=== PATIENT | female | born 1995 ===

== ENCOUNTER 2018-03-22 19:44 | Emergency (ER) | payer SELFPAY ==
[2018-03-22 20:14] VITALS: O2SAT 100
[2018-03-22] MEDS ORDERED: Sodium Chloride 0.9% 1,000 ML IV STA (20:43)
[2018-03-22 21:28] LABS: BASO # 0.1 K/uL (0.0-0.2); BASO % 0.5 % (0.0-2.0); EOS # 0.1 K/uL (0.0-0.7); EOS % 0.9 % (0.0-4.0); HEMOGLOBIN 14.1 g/dL (12.0-16.0); MEAN CELL VOLUME 93.3 fl (81.0-99.0); MEAN CORPUSCULAR HEMOGLOBIN 30.7 pg (27.0-31.0); MEAN CORPUSCULAR HGB CONC 32.9 g/dL (33.0-37.0); MEAN PLATELET VOLUME 7.8 fl (7.2-11.7); MONO # 1.2 K/uL (0.0-0.8); MONO % 8.8 % (0.0-10.0); NEUT # 9.9 K/uL (1.8-7.0); NEUT % 74.8 % (50.0-75.0); RBC 4.58 Mil/uL (3.80-5.20); WHITE BLOOD COUNT 13.2 K/uL (4.8-10.8)
[2018-03-22 21:41] LABS: BLOOD UREA NITROGEN 10 mg/dl (7-17); CALCIUM 9.4 mg/dL (8.4-10.2); GFR NON-AFRICAN AMERICAN > 60
--- NOTE | 2018-03-22 22:15 | ED PDOC ---
HPI: Abdomen Time Seen by Provider: 03/22/18 20:24 Chief Complaint (Nursing): Abdominal Pain Chief Complaint (Provider): Right flank pain History Per: Patient History/Exam Limitations: no limitations Onset/Duration Of Symptoms: Days Outside of [place] travel?: No Current Symptoms Are (Timing): Still Present Associated Symptoms: Urinary Symptoms Additional History Per: Patient Additional Complaint(s): 22yo female, history of UTI and renal stones, comes to ER reporting right flank pain since this morning. Patient states she has been suffering from dysuria and frequency for the past couple weeks and thinks it is a UTI. She reports watery diarrhea this morning but otherwise denies any vomiting. She has no other complaints. PMD: Kerrick Abnormal Vaginal Bleeding: No Past Medical History Reviewed: Historical Data, Nursing Documentation, Vital Signs Vital Signs: Last Vital Signs Temp 98.4 F 03/22/18 20:01 Pulse 82 03/22/18 20:01 Resp 16 03/22/18 20:01 BP 106/61 03/22/18 20:01 Pulse Ox 100 03/22/18 20:01 - Medical History PMH: Kidney Stones - Surgical History Surgical History: No Surg Hx - Family History Family History: States: No Known Family Hx - Social History Current smoker - smoking cessation education provided: No Alcohol: None Drugs: Denies - Home Medications Home Medications: Ambulatory Orders Medication Instructions Recorded Sulfamethoxazole/Trimethoprim 1 tab PO BID #20 tab 03/22/18 [Bactrim DS 800 mg-160 mg] - Allergies Allergies/Adverse Reactions: Allergies Allergy/AdvReac Type Severity Reaction Status Date / Time No Known Allergies Allergy Verified 03/22/18 20:14 Review of Systems ROS Statement: Except As Marked, All Systems Reviewed And Found Negative Gastrointestinal: Positive for: Other (right flank pain) Genitourinary Female: Positive for: Dysuria, Frequency Musculoskeletal: Positive for: Back Pain Physical Exam - Reviewed Nursing Documentation Reviewed: Yes Vital Signs Reviewed: Yes - Physical Exam Appears: Positive for: Non-toxic, No Acute Distress Head Exam: Positive for: ATRAUMATIC, NORMAL INSPECTION, NORMOCEPHALIC Skin: Positive for: Normal Color Eye Exam: Positive for: Normal appearance Neck: Positive for: Normal, Supple Cardiovascular/Chest: Positive for: Regular Rate, Rhythm Respiratory: Positive for: Normal Breath Sounds Gastrointestinal/Abdominal: Positive for: Soft, Tenderness (right flank tenderness; suprapubic tenderness). Negative for: Guarding, Rebound Back: Positive for: R CVA Tenderness Extremity: Positive for: Normal ROM. Negative for: Pedal Edema Neurologic/Psych: Positive for: Alert, Oriented. Negative for: Motor/Sensory Deficits - Laboratory Results Result Diagrams: 03/22/18 21:15 03/22/18 21:15 Urine POC: Negative Urine dip results: Positive for: Leukocyte Esterase (large), Blood (large), Nitrate - ECG O2 Sat by Pulse Oximetry: 100 (RA) Pulse Ox Interpretation: Normal - Progress Re-evaluation Time: 23:35 Condition: Re-examined, Improved Medical Decision Making Medical Decision Making: Impression: UTI Differential: Kidney stone, pyelonephritis, less likely sepsis Plan: -- UDip -- Labs -- IV fluids -- Toradol 15mg IV -- CT Abd/Pelvis w/o contrast 22:30 CT Abd/Pelvis FINDINGS: LUNG BASES: The lung bases appear clear. No pleural effusions are seen. LIVER: Unremarkable. GALLBLADDER AND BILE DUCTS: The gallbladder appears within normal limits. No radioopaque gallstones are seen. No biliary ductal dilatation is evident. PANCREAS: Unremarkable. SPLEEN: Unremarkable. ADRENAL GLANDS: Unremarkable. KIDNEYS, URETERS, AND BLADDER: The kidneys appear within normal limits. There is no hydronephrosis or hydroureter. No urinary calculi are seen. STOMACH AND BOWEL: Unremarkable appearance of the stomach and bowel. No evidence of bowel obstruction. No evidence suggesting enteritis or colitis. APPENDIX: No evidence of acute appendicitis on CT examination. PERITONEUM: No free fluid. No free air. LYMPH NODES: No lymphadenopathy is evident. REPRODUCTIVE: Unremarkable as visualized. VASCULATURE: No evidence of abdominal aortic aneurysm. BONES: No aggressive appearing osseous lesion. No acute osseous pathology evident. IMPRESSION: No acute intra-abdominal or pelvic abnormality. No urinary calculi are seen. Normal appendix. Scribe Attestation: Documented by Andreina Neal, acting as a scribe for Moses Miranda MD. Provider Scribe Attestation: All medical record entries made by the Scribe were at my direction and personally dictated by me. I have reviewed the chart and agree that the record accurately reflects my personal performance of the history, physical exam, medical decision making, and the department course for this patient. I have also personally directed, reviewed, and agree with the discharge instructions and disposition. Disposition - Clinical Impression Clinical Impression: UTI (urinary tract infection), Flank pain - Patient ED Disposition Is Patient to be Admitted: No Doctor Will See Patient In The: Office Counseled Patient/Family Regarding: Studies Performed, Diagnosis, Need For Followup - Disposition Referrals: [facility] [Outside] Disposition: Routine/Home Disposition Time: 23:35 Condition: GOOD Additional Instructions: COOPER BELTRÁN, thank you for letting us take care of you today. Your provider was Moses Miranda MD and you were treated for RT SIDE PAIN. The e [facility] medical care you received today was directed at your acute symptoms. If you were prescribed any medication, please fill it and take as directed. It may take several days for your symptoms to resolve. Return to the Emergency Department if your symptoms worsen, do not improve, or if you have any other problems. Please contact your doctor or call one of the physicians/clinics you have been referred to that are listed on the Patient Visit Information form that is included in your discharge packet. Bring any paperwork you were given at discharge with you along with any medications you are taking to your follow up visit. Our treatment cannot replace ongoing medical care by a primary care provider outside of the emergency department. Thank you for allowing the [facility] team to be part of your care today. If you had an X-Ray or CT scan: A Radiologist will review the ED reading if any change in treatment is needed we will contact you. If you had a blood, urine, or wound culture: It will take several days for the results, if any change in treatment is needed we will contact you. If you had an STI test: It will take 48 hours for the results. Please call after 1 week if you have not heard back. Prescriptions: Sulfamethoxazole/Trimethoprim [Bactrim DS 800 mg-160 mg] 1 tab PO BID #20 tab Instructions: Urinary Tract Infection, Adult (DC)
[2018-03-22] MEDS ORDERED: cefTRIAXone (Rocephin) 1 gm Inj ONE (22:35)
[2018-03-22 23:47] VITALS: BP 114/51; PULSE 72; RESP 18; TEMP 98.2
--- NOTE | 2018-03-23 10:47 | CT ---
Date of service: 03/22/2018 PROCEDURE: CT Abdomen and Pelvis without intravenous contrast HISTORY: right flank pain COMPARISON: None. TECHNIQUE: Unenhanced. Neither IV nor oral contrast administered Radiation dose: Total exam DLP = 236.46 mGy-cm. This CT exam was performed using one or more of the following dose reduction techniques: Automated exposure control, adjustment of the mA and/or kV according to patient size, and/or use of iterative reconstruction technique. FINDINGS: LOWER THORAX: Unremarkable. LIVER: Unremarkable. No gross lesion or ductal dilatation. GALLBLADDER AND BILE DUCTS: Unremarkable. PANCREAS: Unremarkable. No gross lesion or ductal dilatation. SPLEEN: Unremarkable. ADRENALS: Unremarkable. No mass. KIDNEYS AND URETERS: Unremarkable. No hydronephrosis. No solid mass. VASCULATURE: Unremarkable. No aortic aneurysm. No atherosclerotic calcification or mural plaque present. BOWEL: Unremarkable. No obstruction. No gross mural thickening. APPENDIX: No abnormalities to suggest acute appendicitis. No right lower quadrant inflammatory processes identified. Incidental finding(s): Small appendicular less. PERITONEUM: Trace free fluid identified in the pelvis/cul de sac. No free air. LYMPH NODES: Unremarkable. No enlarged lymph nodes. BLADDER: Unremarkable. REPRODUCTIVE: Unremarkable. BONES: No acute fracture. Scoliosis, without secondary degenerative change. OTHER FINDINGS: None. IMPRESSION: No significant or acute findings to account for/ related to the clinical presentation. Additional benign and/or incidental findings described above. Concordant results (preliminary interpretation) provided by [employer]. Procedure Completed: 21:55. Preliminary Report: Dictated and Authenticated: 22:13. Final Interpretation: 10:43. March 23, 2018
== END 2018-03-22 23:54 | disposition home or self-care (01) ==
LOC: H.ER 19:44
DX: N39.0 Urinary tract infection, site not specified (principal)
CPT/HCPCS: 74176; 80048; 81025; 85025; 87040; 87086; 96361; 96365; 96375; 99284; J0696; J1885; J7030

== ENCOUNTER 2018-06-11 13:35 | Emergency (ER) | payer MEDICAID ==
[2018-06-11 13:47] VITALS: BMI 21.7
[2018-06-11 13:48] VITALS: TEMP 98.2
[2018-06-11 14:39] LABS: BASO # 0.1 K/uL (0.0-0.2); BASO % 1.1 % (0.0-2.0); EOS # 0.1 K/uL (0.0-0.7); EOS % 1.6 % (0.0-4.0); LYMPH # 1.6 K/uL (1.0-4.3); LYMPH % 20.5 % (20.0-40.0); MEAN CORPUSCULAR HEMOGLOBIN 31.3 pg (27.0-31.0); MEAN PLATELET VOLUME 8.1 fl (7.2-11.7); MONO # 0.6 K/uL (0.0-0.8); MONO % 8.2 % (0.0-10.0); NEUT # 5.2 K/uL (1.8-7.0); NEUT % 68.6 % (50.0-75.0); RBC 4.16 Mil/uL (3.80-5.20); RED CELL DISTRIBUTION WIDTH 13.1 % (11.5-14.5); WHITE BLOOD COUNT 7.6 K/uL (4.8-10.8)
[2018-06-11 14:45] LABS: ALB/GLOB RATIO 1.5 (1.0-2.1); ALBUMIN 4.6 g/dL (3.5-5.0); ALT/SGPT 31 U/L (9-52); AST/SGOT 21 U/L (14-36); BLOOD UREA NITROGEN 8 mg/dl (7-17); CALCIUM 9.3 mg/dL (8.4-10.2); GFR NON-AFRICAN AMERICAN > 60
--- NOTE | 2018-06-11 16:15 | US ---
Date of service: 2018-06-11 14:44:36 HISTORY: routine COMPARISON: None available. TECHNIQUE: Transvaginal pelvic ultrasound was performed. FINDINGS: UTERUS: Measures 9.5 x 5.1 x 4.2 cm. Normal in size and appearance. No fibroid or other mass lesion seen. ENDOMETRIUM: Measures 14 mm in diameter. The central endometrial echo complex is heterogeneous without increased vascularity. No evidence of intrauterine gestational sac. CERVIX: No cervical abnormality identified. RIGHT OVARY: Measures 2.6 x 1.5 x 1.1 cm. No solid mass. Normal flow. LEFT OVARY: Measures 3.5 x 2.3 x 1.6 cm. No solid mass. Normal flow. FREE FLUID: No significant free fluid noted. OTHER FINDINGS: None. IMPRESSION: No evidence of intrauterine gestational sac. Heterogeneous central endometrial echo complex without central increased vascularity.
--- NOTE | 2018-06-11 16:19 | ED PDOC ---
HPI: Female Pain Time Seen by Provider: 06/11/18 14:17 Chief Complaint (Nursing): Female Genitourinary Chief Complaint (Provider): VAGINAL BLEEDING History Per: Patient (23 Y/O HERE WITH LOWER ABDOMINAL PAIN/BACK PAIN WITH VAGINAL BLEEDING TODAY. NO FEVERS/CHILLS. PATIENT IS PENDING US.) Past Medical History Reviewed: Historical Data, Nursing Documentation, Vital Signs Vital Signs: Last Vital Signs Temp 98.2 F 06/11/18 13:47 Pulse 93 H 06/11/18 13:47 Resp 18 06/11/18 13:47 BP 105/56 L 06/11/18 13:47 Pulse Ox 98 06/11/18 13:47 - Medical History PMH: Kidney Stones - Family History Family History: States: No Known Family Hx - Immunization History Hx Tetanus Toxoid Vaccination: No Hx Influenza Vaccination: No Hx Pneumococcal Vaccination: No - Home Medications Home Medications: Ambulatory Orders Medication Instructions Recorded Naproxen [Naprosyn] 500 mg PO BID PRN #15 tablet 06/13/18 Ondansetron ODT [Zofran ODT] 4 mg PO Q8H PRN #20 odt 06/13/18 - Allergies Allergies/Adverse Reactions: Allergies Allergy/AdvReac Type Severity Reaction Status Date / Time No Known Allergies Allergy Verified 06/13/18 13:47 Review of Systems ROS Statement: Except As Marked, All Systems Reviewed And Found Negative Gastrointestinal: Positive for: Abdominal Pain Genitourinary Female: Positive for: Vaginal Bleeding Physical Exam - Reviewed Nursing Documentation Reviewed: Yes Vital Signs Reviewed: Yes - Physical Exam Appears: Positive for: Well, Non-toxic, No Acute Distress Head Exam: Positive for: ATRAUMATIC, NORMAL INSPECTION, NORMOCEPHALIC Skin: Positive for: Normal Color, Warm, DRY Eye Exam: Positive for: EOMI, Normal appearance, PERRL ENT: Positive for: Normal ENT Inspection Neck: Positive for: Normal, Painless ROM Cardiovascular/Chest: Positive for: Regular Rate, Rhythm Respiratory: Positive for: CNT, Normal Breath Sounds Gastrointestinal/Abdominal: Positive for: Normal Exam, Soft Back: Positive for: Normal Inspection Extremity: Positive for: Normal ROM Neurologic/Psych: Positive for: Alert, Oriented - Laboratory Results Result Diagrams: 06/11/18 14:31 06/11/18 14:31 Lab Results: Total Bilirubin 0.3 mg/dl (0.2-1.3) 06/11/18 14:31 AST 21 U/L (14-36) 06/11/18 14:31 ALT 31 U/L (9-52) 06/11/18 14:31 Alkaline Phosphatase 41 U/L (38-126) 06/11/18 14:31 Total Protein 7.6 G/DL (6.3-8.2) 06/11/18 14:31 Albumin 4.6 g/dL (3.5-5.0) 06/11/18 14:31 Globulin 3.0 gm/dL (2.2-3.9) 06/11/18 14:31 Albumin/Globulin Ratio 1.5 (1.0-2.1) 06/11/18 14:31 Beta HCG, Quant 6638.00 mIU/mL 06/11/18 14:31 - ECG O2 Sat by Pulse Oximetry: 98 - Progress ED Course And Treament: IMPRESSION: No evidence of intrauterine gestational sac. Heterogeneous central endometrial echo complex without central increased vascularity. D/W DR. ALVARADO. RETURN TO ED IN 2 DAYS FOR REPEAT BETA HCG Disposition - Clinical Impression Clinical Impression: Threatened miscarriage in early - Patient ED Disposition Is Patient to be Admitted: No - Disposition Disposition: Routine/Home Disposition Time: 17:06 Condition: FAIR Additional Instructions: RETURN IN 2 DAYS FOR REPEAT BETA HCG Instructions: Threatened Miscarriage (DC) Forms: [facility] ED School/Work Excuse
[2018-06-11] MEDS ORDERED: Sodium Chloride 0.9% 1,000 ML IV STA (16:42)
[2018-06-11] MEDS ORDERED: Morphine 4 MG/ML VIAL IVP ONE (16:42)
[2018-06-11 18:03] VITALS: BP 109/64; PULSE 83; RESP 16
[2018-06-14 17:43] VITALS: O2SAT 98
== END 2018-06-11 18:01 | disposition home or self-care (01) ==
LOC: H.ER 13:35
DX: O20.0 Threatened abortion (principal); Z87.442 Personal history of urinary calculi
CPT/HCPCS: 76817; 80053; 84702; 85025; 86850; 86900; 96360; 96361; 99284; J7030

== ENCOUNTER 2018-06-13 13:15 | Emergency (ER) | payer MEDICAID ==
[2018-06-13 13:16] VITALS: BMI 21.7
[2018-06-13 13:52] VITALS: O2SAT 100
--- NOTE | 2018-06-13 15:09 | ED PDOC ---
HPI: Female Pain Time Seen by Provider: 06/13/18 14:28 Chief Complaint (Nursing): Abdominal Pain Chief Complaint (Provider): Abdominal Pain History Per: Patient History/Exam Limitations: no limitations Onset/Duration Of Symptoms: Days Additional Complaint(s): Kera Rich is a 23 year old female with a past medical history of , who presents to the emergency department for a follow up Beta-HCG quantitative test. Patient is at 5-6 weeks and was present at this ED x2 days ago for vaginal bleeding. During visit, the US was not able to detect the patient's heartbeat so the presumption was a miscarriage. Patient was told to come back in today for a repeat Beta-HCG level. 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 Currently her pain is at a 4/10. She has no other complaints. PMD: [facility] : 2 Para: 1 Past Medical History Reviewed: Historical Data, Nursing Documentation, Vital Signs Vital Signs: Last Vital Signs Temp 98.5 F 06/13/18 13:48 Pulse 70 06/13/18 13:48 Resp 16 06/13/18 13:48 BP 105/62 06/13/18 13:48 Pulse Ox 100 06/13/18 13:48 - Medical History PMH: Kidney Stones - Surgical History Surgical History: No Surg Hx - Family History Family History: States: Unknown Family Hx - Immunization History Hx Tetanus Toxoid Vaccination: No Hx Influenza Vaccination: No Hx Pneumococcal Vaccination: No - Home Medications Home Medications: Ambulatory Orders Medication Instructions Recorded No Known Home Med 04/24/18 - Allergies Allergies/Adverse Reactions: Allergies Allergy/AdvReac Type Severity Reaction Status Date / Time No Known Allergies Allergy Verified 06/13/18 13:47 Review of Systems ROS Statement: Except As Marked, All Systems Reviewed And Found Negative Gastrointestinal: Positive for: Abdominal Pain Physical Exam - Reviewed Nursing Documentation Reviewed: Yes Vital Signs Reviewed: Yes - Physical Exam Appears: Positive for: Non-toxic, No Acute Distress Head Exam: Positive for: ATRAUMATIC, NORMOCEPHALIC Skin: Positive for: Normal Color, Warm, Dry Eye Exam: Positive for: Normal appearance, EOMI, PERRL ENT: Positive for: Normal ENT Inspection Neck: Positive for: Normal, Painless ROM, Supple Cardiovascular/Chest: Positive for: Regular Rate, Rhythm. Negative for: Murmur Respiratory: Positive for: Normal Breath Sounds. Negative for: Respiratory Distress Gastrointestinal/Abdominal: Positive for: Tenderness (mild lower abdominal tenderness) Extremity: Positive for: Normal ROM. Negative for: Pedal Edema, Deformity Neurologic/Psych: Positive for: Alert, Oriented - ECG O2 Sat by Pulse Oximetry: 100 (RA) Pulse Ox Interpretation: Normal Medical Decision Making Medical Decision Making: Time: 1441 Impression: miscarriage Plan: --Beta-HCG quantitative Scribe Attestation: Documented by Solomon Kelley, acting as a scribe for Ladonna Plaza MD. Provider Scribe Attestation: All medical record entries made by the Scribe were at my direction and personally dictated by me. I have reviewed the chart and agree that the record accurately reflects my personal performance of the history, physical exam, medical decision making, and the department course for this patient. I have also personally directed, reviewed, and agree with the discharge instructions and disposition. Disposition - Clinical Impression Clinical Impression: Miscarriage - Patient ED Disposition Is Patient to be Admitted: No Doctor Will See Patient In The: Office Counseled Patient/Family Regarding: Diagnosis, Need For Followup - Disposition Disposition: Routine/Home Disposition Time: 15:30 Condition: STABLE Additional Instructions: See your doctor or return to the ER if there is worsening pain, fever, foul smelling discharge or severe bleeding. Instructions: Dealing With Miscarriage, Miscarriage Forms: [employer] (Vietnamese), [employer] ED School/Work Excuse - POA Present On Arrival: None
[2018-06-13 15:54] VITALS: BP 112/66; PULSE 62; RESP 17; TEMP 98.1
[2018-06-13] MEDS ORDERED: Potassium Chloride 20 mEq ER Tab PO ONE (23:38)
== END 2018-06-13 15:44 | disposition home or self-care (01) ==
LOC: H.ER 13:15
DX: O03.9 Complete or unspecified spontaneous abortion without complication (principal); Z3A.01 Less than 8 weeks gestation of pregnancy

== ENCOUNTER 2018-06-13 21:34 | Emergency (ER) | payer MEDICAID ==
[2018-06-13 21:35] VITALS: BMI 21.7
[2018-06-13 21:46] VITALS: BP 105/57; PULSE 72; RESP 16; TEMP 98.1; O2SAT 99
[2018-06-13] MEDS ORDERED: Sodium Chloride 0.9% 1,000 ML IV STA (22:09)
--- NOTE | 2018-06-13 22:19 | ED PDOC ---
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 Reports continued abdominal cramping, took Tylenol at home. Denies fever, vomiting, diarrhea. Past Medical History Reviewed: Nursing Documentation, Vital Signs Vital Signs: Last Vital Signs Temp 98.1 F 06/13/18 21:43 Pulse 72 06/13/18 21:43 Resp 16 06/13/18 21:43 BP 105/57 L 06/13/18 21:43 Pulse Ox 99 06/13/18 21:43 - Medical History PMH: No Chronic Diseases, Kidney Stones - Family History Family History: States: Unknown Family Hx - Social History Current smoker - smoking cessation education provided: No - Immunization History Hx Tetanus Toxoid Vaccination: No Hx Influenza Vaccination: No Hx Pneumococcal Vaccination: No - Home Medications Home Medications: Ambulatory Orders Medication Instructions Recorded Naproxen [Naprosyn] 500 mg PO BID PRN #15 tablet 06/13/18 Ondansetron ODT [Zofran ODT] 4 mg PO Q8H PRN #20 odt 06/13/18 - Allergies Allergies/Adverse Reactions: Allergies Allergy/AdvReac Type Severity Reaction Status Date / Time No Known Allergies Allergy Verified 06/13/18 13:47 Review of Systems Constitutional: Positive for: Chills. Negative for: Fever Cardiovascular: Negative for: Chest Pain Respiratory: Negative for: Shortness of Breath Gastrointestinal: Positive for: Nausea, Abdominal Pain. Negative for: Vomiting, Diarrhea Genitourinary Female: Positive for: Vaginal Bleeding. Negative for: Dysuria Physical Exam - Reviewed Nursing Documentation Reviewed: Yes Vital Signs Reviewed: Yes - Physical Exam Appears: Positive for: Well, No Acute Distress Head Exam: Positive for: ATRAUMATIC, NORMAL INSPECTION Skin: Positive for: Normal Color, Warm, Dry Eye Exam: Positive for: Normal appearance, EOMI, PERRL Cardiovascular/Chest: Positive for: Regular Rate, Rhythm Respiratory: Positive for: Normal Breath Sounds Gastrointestinal/Abdominal: Positive for: Bowel Sounds, Soft, Tenderness (Suprapubic). Negative for: Distended, Guarding, Rebound Back: Positive for: Normal Inspection. Negative for: L CVA Tenderness, R CVA Tenderness Extremity: Positive for: Normal ROM Neurologic/Psych: Positive for: Alert, Oriented - Laboratory Results Result Diagrams: 06/13/18 22:16 06/13/18 22:16 - ECG O2 Sat by Pulse Oximetry: 99 - Progress Condition: Improved Medical Decision Making Medical Decision Makin yo female with nausea and abdominal pain. - labs - IVF - Zofran Disposition - Clinical Impression Clinical Impression: Nausea in adult, Spontaneous - Disposition Referrals: [facility] [place] [Outside] Disposition: Routine/Home Disposition Time: 23:53 Condition: IMPROVED Prescriptions: Naproxen [Naprosyn] 500 mg PO BID PRN #15 tablet PRN Reason: Pain, Moderate (4-7) Ondansetron ODT [Zofran ODT] 4 mg PO Q8H PRN #20 odt PRN Reason: Nausea/Vomiting Instructions: Miscarriage, Nausea and Vomiting, Adult Forms: [facility] (Thai)
[2018-06-13 22:39] LABS: BASO # 0.2 K/uL (0.0-0.2); BASO % 2.6 % (0.0-2.0); EOS # 0.1 K/uL (0.0-0.7); EOS % 1.9 % (0.0-4.0); HEMOGLOBIN 12.7 g/dL (12.0-16.0); LYMPH # 2.1 K/uL (1.0-4.3); LYMPH % 27.2 % (20.0-40.0); MEAN CELL VOLUME 93.5 fl (81.0-99.0); MEAN CORPUSCULAR HEMOGLOBIN 30.3 pg (27.0-31.0); MEAN CORPUSCULAR HGB CONC 32.4 g/dL (33.0-37.0); MEAN PLATELET VOLUME 8.4 fl (7.2-11.7); MONO # 0.6 K/uL (0.0-0.8); MONO % 7.6 % (0.0-10.0); NEUT # 4.7 K/uL (1.8-7.0); NEUT % 60.7 % (50.0-75.0); RBC 4.2 Mil/uL (3.80-5.20); RED CELL DISTRIBUTION WIDTH 12.9 % (11.5-14.5); WHITE BLOOD COUNT 7.7 K/uL (4.8-10.8)
[2018-06-13 23:03] LABS: ALB/GLOB RATIO 1.5 (1.0-2.1); ALBUMIN 4.2 g/dL (3.5-5.0); ALT/SGPT 16 U/L (9-52); AST/SGOT 21 U/L (14-36); BLOOD UREA NITROGEN 10 mg/dl (7-17); CALCIUM 8.9 mg/dL (8.4-10.2); GFR NON-AFRICAN AMERICAN > 60
[2018-06-13] MEDS ORDERED: Potassium Chloride 20 mEq ER Tab PO STA (23:07)
== END 2018-06-14 00:10 | disposition home or self-care (01) ==
LOC: H.ER 21:34
DX: O03.9 Complete or unspecified spontaneous abortion without complication (principal); R11.0 Nausea
CPT/HCPCS: 80053; 84702; 85025; 96374; 99283; J2405; J7030

== ENCOUNTER 2018-07-31 16:47 | Emergency (ER) | payer MEDICAID ==
[2018-07-31 16:55] VITALS: PULSE 74; RESP 16; TEMP 97.7; O2SAT 100; BMI 21.3
[2018-07-31 17:00] VITALS: BP 120/45
[2018-07-31] MEDS ORDERED: Naproxen 500 MG TAB PO STA (17:58)
--- NOTE | 2018-07-31 19:59 | ED PDOC ---
Lower Extremity Pain/Injury Time Seen by Provider: 07/31/18 17:45 Chief Complaint (Nursing): Lower Extremity Problem/Injury Chief Complaint (Provider): Right Knee Pain History Per: Patient History/Exam Limitations: no limitations Onset/Duration Of Symptoms: Mins (just prior to arrival) Current Symptoms Are (Timing): Still Present Additional Complaint(s): 23 year old female with no significant pmhx presents to the ED for evaluation of right knee pain s/p a slip and fall in the snow just prior to arrival. Patient reports that she is able to bear weight on the leg, but feels a shooting pain radiating from her mid calf to her knee. No meds taken. She further states that she has been having left posterior ankle pain since December 2017 when she was diagnosed with Achilles tendonitis. Minimal improvement is provided by NSAIDs (unsure which one), last dose two days ago, but she notes pain persists. Denies numbness / tingling in bilateral feet, fever, chills, and heel pain. PMD: Artemio Morton Past Medical History Vital Signs: Last Vital Signs Temp 97.7 F 07/31/18 16:54 Pulse 74 07/31/18 16:54 Resp 16 07/31/18 16:54 BP 120/45 L 07/31/18 16:59 Pulse Ox 100 07/31/18 16:54 - Medical History PMH: Kidney Stones - Family History Family History: States: Unknown Family Hx - Immunization History Hx Tetanus Toxoid Vaccination: No Hx Influenza Vaccination: No Hx Pneumococcal Vaccination: No - Home Medications Home Medications: Ambulatory Orders Medication Instructions Recorded Naproxen [Naprosyn] 500 mg PO BID PRN #15 tablet 06/13/18 Ondansetron ODT [Zofran ODT] 4 mg PO Q8H PRN #20 odt 06/13/18 - Allergies Allergies/Adverse Reactions: Allergies Allergy/AdvReac Type Severity Reaction Status Date / Time No Known Allergies Allergy Verified 07/31/18 16:51 Review of Systems ROS Statement: Except As Marked, All Systems Reviewed And Found Negative Constitutional: Negative for: Fever, Chills Musculoskeletal: Positive for: Other (shooting pain going from mid calf to knee of right leg; left posterior ankle pain; no ) Neurological: Negative for: Numbness (or tingling in feet) Physical Exam - Reviewed Nursing Documentation Reviewed: Yes Vital Signs Reviewed: Yes - Physical Exam Appears: Positive for: Well Pulses-Dorsalis Pedis (L): 2+ Pulses-Dorsalis Pedis (R): 2+ Extremity: Positive for: Normal ROM (normal extension of right knee, mild pain with flexion; normal flexion and extension of right ankle and hip; normal flexion and extension of left ankle), Tenderness (right knee mildly tender superior to patella without ecchymosis, erythema, and deformity; mild tenderness to palpation of left Achilles tendon; no tenderness to paplation of left calcaneus), Capillary Refill (less than 2 seconds). Negative for: Other (erythema, swelling, or ecchymosis to left posterior ankle) Neurologic/Psych: Positive for: Alert, Oriented (x3) - ECG O2 Sat by Pulse Oximetry: 100 (RA) Pulse Ox Interpretation: Normal Medical Decision Making Medical Decision Making: Time: 1756 Initial Impression: right knee pain Initial Plan: --Right knee XR --U-preg --Naproxen 500mg PO 2004 Right knee XR reviewed by me: no fracture or dislocation appreciated Patient notes moderate improvement of pain and is stable for discharge home. Scribe Attestation: Documented by Amanda Palmer, acting as a scribe for Hailey Plaza PA-C. Provider Scribe Attestation: All medical record entries made by the Scribe were at my direction and personally dictated by me. I have reviewed the chart and agree that the record accurately reflects my personal performance of the history, physical exam, medical decision making, and the department course for this patient. I have also personally directed, reviewed, and agree with the discharge instructions and disposition. Disposition - Clinical Impression Clinical Impression: Knee pain, right, Achilles tendinitis, left leg - Patient ED Disposition Is Patient to be Admitted: No Counseled Patient/Family Regarding: Studies Performed, Need For Followup, Rx Given - Disposition Referrals: Torres Barnhart MD [Staff Provider] - Artemio Vincent MD [Family Provider] - Disposition: Routine/Home Disposition Time: 20:05 Condition: STABLE Additional Instructions: Take Naproxen for pain as needed. Follow up with environmental web crawler for further advise re: Achilles tendinitis. Do stretching exercises for Left Achilles tendon. Instructions: Contusion (DC), Knee Pain (DC), Achilles Tendinitis (ED) Forms: [employer] (Faroese) Print Language: TANZANIAN
--- NOTE | 2018-08-01 08:36 | RAD ---
Date of service: 07/31/2018 PROCEDURE: Right Knee Radiographs. HISTORY: s/p fall onto Right knee COMPARISON: None. FINDINGS: BONES: Normal. No fracture. JOINTS: Normal. No osteoarthritis. JOINT EFFUSION: No significant appearing joint effusion. OTHER FINDINGS: None. IMPRESSION: No fracture lytic lesion. No significant appearing joint effusion. Comments: No preliminary ER impression at this time.
== END 2018-07-31 20:39 | disposition home or self-care (01) ==
LOC: H.ER 16:47
DX: M25.561 Pain in right knee (principal); M76.62 Achilles tendinitis, left leg; Z87.442 Personal history of urinary calculi

== ENCOUNTER 2018-08-14 09:02 | Emergency (ER) | payer MEDICAID ==
[2018-08-14 09:04] VITALS: BMI 21.3
--- NOTE | 2018-08-14 09:44 | ED PDOC ---
HPI: Chest Pain Time Seen by Provider: 08/14/18 09:22 Chief Complaint (Nursing): Chest Pain Chief Complaint (Provider): Chest Pain History Per: Patient History/Exam Limitations: no limitations Onset/Duration Of Symptoms: Days (today morning) Current Symptoms Are (Timing): Still Present Additional Complaint(s): 23 year old female presents to the ED for an evaluation of right-sided chest pain onset today morning which is not associated with shortness or breath or cough. Patient had a similar episode in the past, but the symptoms resolved spontaneously. Last night, patient had right-sided abdominal pain that subsided. Otherwise, patient denies fever. PMD: Non [facility] provider Past Medical History Reviewed: Historical Data, Nursing Documentation, Vital Signs Vital Signs: Last Vital Signs Temp 98.5 F 08/14/18 09:12 Pulse 90 08/14/18 09:12 Resp 18 08/14/18 09:12 BP 97/65 L 08/14/18 09:12 Pulse Ox 97 08/14/18 09:12 - Medical History PMH: Kidney Stones - Family History Family History: States: Unknown Family Hx - Social History Current smoker - smoking cessation education provided: Yes (VAPE) Alcohol: Social Drugs: Denies - Immunization History Hx Tetanus Toxoid Vaccination: No Hx Influenza Vaccination: No Hx Pneumococcal Vaccination: No - Home Medications Home Medications: Ambulatory Orders Medication Instructions Recorded Naproxen [Naprosyn] 500 mg PO BID PRN #15 tablet 06/13/18 Ondansetron ODT [Zofran ODT] 4 mg PO Q8H PRN #20 odt 06/13/18 Naproxen [Naprosyn] 500 mg PO Q12H #20 tab 08/14/18 - Allergies Allergies/Adverse Reactions: Allergies Allergy/AdvReac Type Severity Reaction Status Date / Time No Known Allergies Allergy Verified 07/31/18 16:51 Review of Systems ROS Statement: Except As Marked, All Systems Reviewed And Found Negative Constitutional: Negative for: Fever Cardiovascular: Positive for: Chest Pain Respiratory: Negative for: Cough, Shortness of Breath Gastrointestinal: Negative for: Abdominal Pain Physical Exam - Reviewed Nursing Documentation Reviewed: Yes Vital Signs Reviewed: Yes - Physical Exam Appears: Positive for: Well, Non-toxic, No Acute Distress Head Exam: Positive for: ATRAUMATIC, NORMAL INSPECTION, NORMOCEPHALIC Cardiovascular/Chest: Positive for: Regular Rate, Rhythm, Other (right sided reproductive anterior chest wall tenderness) Respiratory: Positive for: Normal Breath Sounds (lungs clear bilaterally ) Gastrointestinal/Abdominal: Positive for: Normal Exam, Soft. Negative for: Tenderness Back: Positive for: Normal Inspection. Negative for: L CVA Tenderness, R CVA Tenderness Extremity: Positive for: Normal ROM. Negative for: Tenderness, Pedal Edema, Deformity Neurological/Psych: Positive for: Awake, Alert, Normal Tone, Oriented (x3) - Laboratory Results Result Diagrams: 08/14/18 09:40 08/14/18 09:40 - ECG O2 Sat by Pulse Oximetry: 97 (RA) Pulse Ox Interpretation: Normal Medical Decision Making Medical Decision Makin Impression: most likely chest wall pain. Will order and review CXR, labs and EKG Plan: EKG Troponin ED urine ED urine dipstick CBC w/ differential Chest two views [RAD] Reevaluation ----- Scribe Attestation: Documented by Clayton Delgadillo, acting as a scribe Yannick Sprague MD. Provider Scribe Attestation: All medical record entries made by the Scribe were at my direction and personally dictated by me. I have reviewed the chart and agree that the record accurately reflects my personal performance of the history, physical exam, medical decision making, and the department course for this patient. I have also personally directed, reviewed, and agree with the discharge instructions and disposition. Disposition - Clinical Impression Clinical Impression: Chest wall pain - Patient ED Disposition Is Patient to be Admitted: No Counseled Patient/Family Regarding: Studies Performed, Diagnosis, Need For Followup, Rx Given - Disposition Referrals: [facility] [Outside] Disposition: Routine/Home Disposition Time: 11:39 Condition: FAIR Prescriptions: Naproxen [Naprosyn] 500 mg PO Q12H #20 tab Instructions: Costochondritis Forms: [employer] (Grenadian)
[2018-08-14 10:50] LABS: BASO % 0.7 % (0.0-2.0); EOS % 1.1 % (0.0-4.0); HEMOGLOBIN 10.4 g/dL (12.0-16.0); LYMPH # 0.8 K/uL (1.0-4.3); LYMPH % 24.8 % (20.0-40.0); MEAN CELL VOLUME 93.2 fl (81.0-99.0); MEAN CORPUSCULAR HEMOGLOBIN 27.8 pg (27.0-31.0); MEAN CORPUSCULAR HGB CONC 29.8 g/dL (33.0-37.0); MEAN PLATELET VOLUME 8.5 fl (7.2-11.7); MONO # 0.2 K/uL (0.0-0.8); MONO % 7.1 % (0.0-10.0); NEUT # 2.2 K/uL (1.8-7.0); NEUT % 66.3 % (50.0-75.0); NRBC % 0.2 % (0.0-0.0); RBC 3.74 Mil/uL (3.80-5.20); RED CELL DISTRIBUTION WIDTH 13.1 % (11.5-14.5); WHITE BLOOD COUNT 3.2 K/uL (4.8-10.8)
[2018-08-14 10:55] LABS: ALB/GLOB RATIO 1.5 (1.0-2.1); ALBUMIN 4.3 g/dL (3.5-5.0); ALT/SGPT 21 U/L (9-52); AST/SGOT 22 U/L (14-36); BLOOD UREA NITROGEN 11 mg/dl (7-17); CALCIUM 9.4 mg/dL (8.4-10.2); GFR NON-AFRICAN AMERICAN > 60
--- NOTE | 2018-08-14 11:05 | RAD ---
HISTORY: Right sided chest pain COMPARISON: None available. TECHNIQUE: Chest PA and lateral FINDINGS: LUNGS: No focal consolidation. Please note that chest x-ray has limited sensitivity for the detection of pulmonary masses. PLEURA: No significant pleural effusion identified. No definite pneumothorax . CARDIOVASCULAR: The cardiomediastinal silhouette appears within normal limits of size. No atherosclerotic calcification present. OSSEOUS STRUCTURES: No acute osseous abnormality identified. VISUALIZED UPPER ABDOMEN: Unremarkable. OTHER FINDINGS: None. IMPRESSION: No focal consolidation.
[2018-08-14 12:44] VITALS: BP 110/78; PULSE 78; RESP 19; TEMP 97.5; O2SAT 98
--- NOTE | 2018-08-14 21:20 | CARD ---
APPROVED REPORT Date of service: 08/14/2018 EKG Measurement Heart [id number] <Conclusion> Normal sinus rhythm Normal ECG
== END 2018-08-14 12:45 | disposition home or self-care (01) ==
LOC: H.ER 09:02
DX: R07.9 Chest pain, unspecified (principal); F17.290 Nicotine dependence, other tobacco product, uncomplicated; Z87.442 Personal history of urinary calculi

== ENCOUNTER 2018-10-02 19:15 | Emergency (ER) | payer MEDICAID ==
[2018-10-02 19:16] VITALS: BMI 21.3
[2018-10-02 20:49] VITALS: BP 96/56; PULSE 72; RESP 16; TEMP 98.3; O2SAT 98
[2018-10-02] MEDS ORDERED: Sodium Chloride 0.9% 1,000 ML IV STA (22:53)
[2018-10-03 04:33] LABS: BASO % 0.3 % (0.0-2.0); EOS # 0.1 K/uL (0.0-0.7); EOS % 0.9 % (0.0-4.0); LYMPH # 1.3 K/uL (1.0-4.3); LYMPH % 13.5 % (20.0-40.0); MEAN CELL VOLUME 91.2 fl (81.0-99.0); MEAN CORPUSCULAR HEMOGLOBIN 30.3 pg (27.0-31.0); MEAN CORPUSCULAR HGB CONC 33.2 g/dL (33.0-37.0); MEAN PLATELET VOLUME 8.2 fl (7.2-11.7); MONO # 0.8 K/uL (0.0-0.8); NEUT # 7.1 K/uL (1.8-7.0); NEUT % 76.3 % (50.0-75.0); RBC 3.97 Mil/uL (3.80-5.20); RED CELL DISTRIBUTION WIDTH 12.7 % (11.5-14.5); WHITE BLOOD COUNT 9.4 K/uL (4.8-10.8)
[2018-10-03 04:35] LABS: BLOOD UREA NITROGEN 5 mg/dl (7-17)
[2018-10-03 04:36] LABS: ALB/GLOB RATIO 1.5 (1.0-2.1); ALBUMIN 3.9 g/dL (3.5-5.0); ALT/SGPT 23 U/L (9-52); AST/SGOT 23 U/L (14-36); CALCIUM 8.9 mg/dL (8.4-10.2); GFR NON-AFRICAN AMERICAN > 60
--- NOTE | 2018-10-03 05:18 | ED PDOC ---
HPI: Abdomen Time Seen by Provider: 10/02/18 22:49 Chief Complaint (Nursing): GI Problem Chief Complaint (Provider): GI Problem History Per: Patient History/Exam Limitations: no limitations Onset/Duration Of Symptoms: Days Current Symptoms Are (Timing): Still Present Additional Complaint(s): 23 y/o female with a PMHx of at eight and a half weeks presents to the ED for evaluation of increasing nausea and vomiting. Patient had an US performed previously that confirmed IUP and is now complaining of increasing nausea and vomiting with . Patient notes of having had similar symptoms with previous with son. Patient reports of vomiting about 6 times and has most recently noticed it to be bile. Patient additionally complaining of cramping mid-abdominal pain. Otherwise, patient denies hematemesis and fever. PMD: Shannon Castaneda : 4 Para: 1 Past Medical History Reviewed: Historical Data, Nursing Documentation, Vital Signs Vital Signs: Last Vital Signs Temp 98.3 F 10/02/18 20:46 Pulse 72 10/02/18 20:46 Resp 16 10/02/18 20:46 BP 96/56 L 10/02/18 20:46 Pulse Ox 98 10/02/18 20:46 Primary Care Provider: Shannon Castaneda - Medical History PMH: Kidney Stones - Surgical History Surgical History: No Surg Hx - Family History Family History: States: Unknown Family Hx - Immunization History Hx Tetanus Toxoid Vaccination: No Hx Influenza Vaccination: No Hx Pneumococcal Vaccination: No - Home Medications Home Medications: Ambulatory Orders Medication Instructions Recorded Naproxen [Naprosyn] 500 mg PO BID PRN #15 tablet 06/13/18 Ondansetron ODT [Zofran ODT] 4 mg PO Q8H PRN #20 odt 06/13/18 Naproxen [Naprosyn] 500 mg PO Q12H #20 tab 08/14/18 Doxylamine/Pyridoxine HCl (B6) 1 - 2 each PO HS #16 tablet. 10/02/18 [Vidhya Crandall 10-10 mg Tablet] - Allergies Allergies/Adverse Reactions: Allergies Allergy/AdvReac Type Severity Reaction Status Date / Time No Known Allergies Allergy Verified 10/02/18 20:46 Review of Systems ROS Statement: Except As Marked, All Systems Reviewed And Found Negative Constitutional: Negative for: Fever Gastrointestinal: Positive for: Nausea, Vomiting, Abdominal Pain Physical Exam - Reviewed Nursing Documentation Reviewed: Yes Vital Signs Reviewed: Yes - Physical Exam Appears: Positive for: No Acute Distress Head Exam: Positive for: ATRAUMATIC, NORMOCEPHALIC Skin: Positive for: Normal Color, Warm, Dry Eye Exam: Positive for: Normal appearance, EOMI, PERRL ENT: Positive for: Other (DRY MUCOUS MEMBRANE) Neck: Positive for: Normal, Painless ROM Cardiovascular/Chest: Positive for: Regular Rate, Rhythm. Negative for: Murmur Respiratory: Positive for: Normal Breath Sounds. Negative for: Respiratory Distress Gastrointestinal/Abdominal: Positive for: Soft, Tenderness (MILD SUPRAPUBIC TENDERNESS) Back: Positive for: Normal Inspection. Negative for: L CVA Tenderness, R CVA Tenderness, Vertebral Tenderness Extremity: Positive for: Normal ROM. Negative for: Deformity Neurological/Psych: Positive for: Awake, Alert, Oriented (x3). Negative for: Motor/Sensory Deficits - Laboratory Results Result Diagrams: 10/03/18 00:55 10/03/18 00:55 Lab Results: Total Bilirubin 0.5 mg/dl (0.2-1.3) 10/03/18 00:55 AST 23 U/L (14-36) 10/03/18 00:55 ALT 23 U/L (9-52) 10/03/18 00:55 Alkaline Phosphatase 36 U/L (38-126) L 10/03/18 00:55 Total Protein 6.5 G/DL (6.3-8.2) 10/03/18 00:55 Albumin 3.9 g/dL (3.5-5.0) 10/03/18 00:55 Globulin 2.6 gm/dL (2.2-3.9) 10/03/18 00:55 Albumin/Globulin Ratio 1.5 (1.0-2.1) 10/03/18 00:55 Beta HCG, Quant 840653.00 mIU/mL 10/03/18 00:55 - ECG O2 Sat by Pulse Oximetry: 98 (RA) Pulse Ox Interpretation: Normal Medical Decision Making Medical Decision Making: Time: 2248 Impression: 23 y/o female with nausea and vomiting in early Plan: -- Beta-HCG, Qualitative -- CMP -- ED Urine -- ED Urine Dipstick -- CBC with Differentials -- Sodium Chloride IV 1000 mls/ht -- Reglan 10 mg IVP -- Heplock Insertion -- Urinalysis -- US Transvaginal Time: 308 US RESULTS Obstetric ultrasound, transvaginal. Indication: Nausea, pelvic discomfort. Technique: Real-time ultrasound images were obtained. Findings: Nonvisualization of the right ovary. Normal left ovary. Unremarkable uterus measuring 9.3x8.5x7.9 cm. Normal cervical length measuring 5.8 cm. Early intrauterine . Estimated gestational age 8 weeks and 6 days. heart rate 176 beats per minute. Yolk sac is visualized. Impression: Single, live intrauterine gestation. No abnormalities seen. Electronically signed on October 03, 2018 3:09:41 AM EDT by: June Gerber M.D., Certified by [facility], Neuroradiology Time: 335 -- On re-evaluation, patient reports of an improvement of symptoms. Patient is stable upon discharge home with a diagnosis of hyperemesis. Scribe Attestation: Documented by Jackie Calderon, acting as a scribe for Hair Marshall MD. Provider Scribe Attestation: All medical record entries made by the Scribe were at my direction and persona lly dictated by me. I have reviewed the chart and agree that the record accurately reflects my personal performance of the history, physical exam, medical decision making, and the department course for this patient. I have also personally directed, reviewed, and agree with the discharge instructions and disposition. Disposition - Clinical Impression Clinical Impression: Threatened miscarriage - Disposition [facility] Shannon Castaneda [Primary Care Provider] - Disposition Time: 04:00 Condition: STABLE Prescriptions: Doxylamine/Pyridoxine HCl (B6) [Vidhya Crandall 10-10 mg Tablet] 1 - 2 each PO HS #16 tablet. Instructions: Threatened Miscarriage Forms: [employer] (Turkmen)
--- NOTE | 2018-10-03 15:02 | US ---
Date of service: 10/03/2018 HISTORY: /suprapubic pain LMP 08/06/2018. Gestational age 8 weeks 2 days COMPARISON: None available. TECHNIQUE: Transvaginal FINDINGS: UTERUS: Measures 9.3 x 8.5 x 7.9 cm. Markedly anteverted in appearance. No uterine masses noted. Within the uterine cavity an intrauterine gestational sac/ is present. The mean gestational sac is 2.9 cm corresponding to 7 weeks 6 days. Yolk sac 0.76 cm is present. A embryonic/ pole is present. The crown-rump length is 2.2 cm a corresponding 8 weeks 6 days. Heart motion is present. heart beat is 176.43 beats per minute. Unremarkable CERVIX: No cervical abnormality identified. Cervical length 5.8 cm. This internal cervical os closed RIGHT OVARY: Not visualized. LEFT OVARY: Measures 4.1 x 2.3 x 2.9 cm. No solid mass. Normal flow. FREE FLUID: No significant free fluid noted. OTHER FINDINGS: None. IMPRESSION: Single intrauterine gestation with normal cardiac activity whose ultrasound age by biometric parameters corresponds to 8 weeks 3 days +/-0 weeks 4 days. With an ultrasound estimated date of delivery of 05/12/2019. No perigestational bleeds seen. No uterine masses seen. The right ovary is not visualized. Concordant results (preliminary interpretation) provided by [facility].
== END 2018-10-03 04:00 | disposition home or self-care (01) ==
LOC: H.ER 19:15
DX: O20.0 Threatened abortion (principal); Z3A.08 8 weeks gestation of pregnancy; O21.9 Vomiting of pregnancy, unspecified